=== PATIENT | female | born 1945 | race Caucasian/White ===

== ENCOUNTER 2018-08-10 12:18 | Emergency (ER) | payer MEDICARE ==
[2018-08-10] MEDS ORDERED: Clindamycin 150 MG CAP ONE (12:52)
[2018-08-10] MEDS ORDERED: Bacitracin Zinc 1 Packet ONE (12:52)
[2018-08-10] MEDS ORDERED: Bupivacaine PF 0.5% 30 ML VIAL ONE (12:52)
--- NOTE | 2018-08-10 13:04 | RAD ---
Radiograph left second digit 3 views: HISTORY: 72-year-old female status post trauma including laceration FINDINGS: There is a nondisplaced fracture of the distal portion of the distal tuft. This is only visible on th e lateral view. There is no other fracture and no dislocation. IMPRESSION: Acute, traumatic, nondisplaced fracture of distal tuft of second distal phalanx.
[2018-08-10] MEDS ORDERED: Adacel (T-DAP) 0.5 ML SYRINGE ONE (13:18)
== END 2018-08-10 13:41 | disposition home or self-care (01) ==
LOC: MADERS 12:18
DX: S62.661A Nondisplaced fracture of distal phalanx of left index finger, initial encounter for closed fracture (principal); S61.211A Laceration without foreign body of left index finger without damage to nail, initial encounter; F41.0 Panic disorder [episodic paroxysmal anxiety]; W20.8XXA Other cause of strike by thrown, projected or falling object, initial encounter
CPT/HCPCS: 12001; 90471; 90715; S0020

== ENCOUNTER 2022-02-13 12:58 | Emergency (ER) | payer MEDICARE ==
[2022-02-13] MEDS ORDERED: Sodium Chloride 0.9% 1,000 ML ONE (14:03)
[2022-02-13] MEDS ORDERED: Acetaminophen 325 MG Suppository ONE (14:03)
[2022-02-13] MEDS ORDERED: Acetaminophen 325 MG TAB ONE (14:04)
[2022-02-13 14:22] LABS: ALT (SGPT) 16 U/L (8-55); AST (SGOT) 23 U/L (5-34); Albumin 3.5 g/dL (3.4-4.8); Alkaline Phosphatase 57 U/L (40-110); Anion Gap 12 mmol/L (10-20); BUN (Urea Nitrogen) 18 mg/dL (9.8-20.1); Band 1 % (5-11); Bilirubin, Total 0.3 mg/dL (0.2-1.2); Calc. Creatinine Clearance 0 mL/min (70-130); Calcium 8.5 mg/dL (7.8-10.44); Carbon Dioxide 25 mmol/L (23-31); Chloride 95 mmol/L (98-107); Estimated GFR 52; Globulin 2.8 g/dL (2.4-3.5); Glucose 165 mg/dL (83-110); Hemoglobin 10.8 g/dL (12.0-16.0); Lipase 26 U/L (8-78); Lymphocytes 5 % (21-51); MDiff Complete? YES; Magnesium 1.9 mg/dL (1.6-2.6); Mean Corpuscular HGB CONC 33.5 g/dL (32.0-36.0); Mean Corpuscular Hemoglobin 30.3 pg (27.0-31.0); Mean Corpuscular Volume 90.5 fl (78.0-98.0); Mean Platelet Volume 7.7 fL (7.4-10.4); Metamyelocyte 1 % (0-0); Monocytes 4 % (0-10); Neutrophil 86 % (42-75); Platelet Count 191 10x3/uL (130-400); Platelet Morphology Comment Appears Adequate; Potassium 4.2 mmol/L (3.5-5.1); Protein, Total 6.3 g/dL (5.8-8.1); RBC Distribution Width 12.4 % (11.5-14.5); Reactive Lymphocytes 3 % (0-10); Red Blood Cell (RBC) Count 3.55 mill/uL (4.20-5.40); Sodium 128 mmol/L (136-145); White Blood Cell (WBC) Count 3.5 10x3/uL (4.8-10.8)
[2022-02-13 14:50] LABS: Bilirubin Negative (Negative); Blood, Urine Negative (Negative); Clarity Clear (Clear); Glucose, Urine (Dipstick) 250 mg/dL (Negative); Ketone, Urine Negative (Negative); Leukocyte Negative (Negative); Nitrite Negative (Negative); Protein, Urine (Dipstick) Negative (Neg-Trace); Specific Gravity, Urine 1.015 (1.005-1.030); Urobilinogen 0.2 mg/dL (Less than 2); pH, Urine 5.5 (5.0-9.0)
== END 2022-02-13 15:13 | disposition home or self-care (01) ==
LOC: MADERS 12:58
DX: J10.1 Influenza due to other identified influenza virus with other respiratory manifestations (principal); E11.9 Type 2 diabetes mellitus without complications; Z79.4 Long term (current) use of insulin; K21.9 Gastro-esophageal reflux disease without esophagitis; I10 Essential (primary) hypertension; Z79.899 Other long term (current) drug therapy; Z79.84 Long term (current) use of oral hypoglycemic drugs
CPT/HCPCS: 71045; 80053; 81003; 83605; 83690; 83735; 84484; 85025; 87081; 87430; 87804; 87807; J7050

== ENCOUNTER 2023-03-10 10:40 | Emergency (ER) | payer MEDICARE ==
[2023-03-10] MEDS ORDERED: Ondansetron PF 4 MG/2 ML Vial ONE (11:52)
[2023-03-10] MEDS ORDERED: Sodium Chloride 0.9% 1,000 ML ONE (11:52)
[2023-03-10 11:54] LABS: #Eosinphils 0.1 thou/uL (0.0-0.7); #Lymphocytes 0.3 thou/uL (1.20-3.40); #Monocytes 0.1 thou/uL (0.11-0.59); #Neutrophils 4.2 thou/uL (1.40-6.50); %Basophils 0.3 % (0.0-1.0); %Eosinophils 1.2 % (0.0-10.0); %Lymphocytes 6.2 % (21.0-51.0); %Monocytes 2.4 % (0.0-10.0); %Neutrophils 89.8 % (42.0-75.0); Hematocrit 31.9 % (36.0-47.0); Hemoglobin 10.4 g/dL (12.0-16.0); Mean Corpuscular HGB CONC 32.5 g/dL (32.0-36.0); Mean Corpuscular Hemoglobin 31.3 pg (27.0-31.0); Mean Corpuscular Volume 96.5 fl (78.0-98.0); Mean Platelet Volume 7.7 fL (7.4-10.4); Platelet Count 189 10x3/uL (130-400); RBC Distribution Width 13.4 % (11.5-14.5); Red Blood Cell (RBC) Count 3.31 mill/uL (4.20-5.40); White Blood Cell (WBC) Count 4.6 10x3/uL (4.8-10.8)
[2023-03-10 12:07] LABS: Troponin I Less than 0.010 ng/mL (< 0.028)
[2023-03-10 12:09] LABS: ALT (SGPT) 19 U/L (8-55); AST (SGOT) 20 U/L (5-34); Albumin 3.9 g/dL (3.4-4.8); Alkaline Phosphatase 82 U/L (40-110); Anion Gap 13 mmol/L (10-20); BUN (Urea Nitrogen) 12 mg/dL (9.8-20.1); Bilirubin, Total 0.4 mg/dL (0.2-1.2); Calc. Creatinine Clearance 0 mL/min (70-130); Calcium 8.6 mg/dL (7.8-10.44); Carbon Dioxide 27 mmol/L (23-31); Chloride 96 mmol/L (98-107); Estimated GFR 61; Globulin 2.3 g/dL (2.4-3.5); Glucose 178 mg/dL (83-110); Lipase 18 U/L (8-78); Magnesium 1.7 mg/dL (1.6-2.6); Potassium 4.8 mmol/L (3.5-5.1); Protein, Total 6.2 g/dL (5.8-8.1); Sodium 131 mmol/L (136-145)
[2023-03-10] MEDS ORDERED: Ibuprofen 800 MG TAB ONE (12:25)
[2023-03-10 13:21] LABS: Troponin I 0.017 ng/mL (< 0.028)
== END 2023-03-10 14:15 | disposition home or self-care (01) ==
LOC: MADERS 10:40
DX: R55 Syncope and collapse (principal); M79.602 Pain in left arm; R11.2 Nausea with vomiting, unspecified; E11.9 Type 2 diabetes mellitus without complications; E03.9 Hypothyroidism, unspecified; K21.9 Gastro-esophageal reflux disease without esophagitis; I10 Essential (primary) hypertension; Z79.4 Long term (current) use of insulin; Z79.899 Other long term (current) drug therapy
CPT/HCPCS: 36415; 71045; 80053; 83690; 83735; 83880; 84484; 85025; 93005; 94760; 96361; 96374; J2405; J7050